=== PATIENT | female | born 1960 | race Caucasian/White ===

== ENCOUNTER → 2020-04-09 | Outpatient (CLI) | payer OTHER | END | disposition home or self-care (01) | LOC: RAD 17:02 | PROVIDERS: ATTEND Family Medicine | DX: K57.30 Diverticulosis of large intestine without perforation or abscess without bleeding (principal); K57.32 Diverticulitis of large intestine without perforation or abscess without bleeding; Q89.09 Congenital malformations of spleen | CPT/HCPCS: 74176 ==

== ENCOUNTER 2020-04-11 11:24 | Inpatient (IN) | payer OTHER ==
[~2020-04-11] VITALS: Ht 172.7 cm; Wt 67.0 kg
--- NOTE | 2020-04-11 11:39 | NUR ---
PATIENT WALKED BACK FROM TRIAGE WITH CHIEF C/O DIFFUSE ABD PAIN. PATIENT HAD CT SCAN WEDNESDAY WHICH SHOWED DIVERTICULITIS. PATIENT WAS SEEN AT URGENT CARE TODAY AND SENT STRAIGHT TO ER. PATIENT STATES NO BM IN 6 DAYS, DENIES VOMITING, PATIENT REPORTS CHILLS AND NAUSEA. PATIENT DENIES PAIN WITH URINATION. NADN, PATIENTS SPOUSE AT BEDSIDE, VSS, CALL LIGHT WITHIN REACH.
--- NOTE | 2020-04-11 11:57 | NUR ---
ER PROVIDER AT BEDSIDE FOR EVALUATION.
[2020-04-11] MEDS ORDERED: MORPHINE SULFATE 4 MG/ML, 1ML IVPush PRN (12:00)
[2020-04-11] MEDS ORDERED: ONDANSETRON 2MG/ML, 2ML IVPush ONE (12:00)
[2020-04-11] MEDS ORDERED: SODIUM CHLORIDE FLUSH 10ML SYR IVF ONE (12:00)
[2020-04-11] MEDS ORDERED: MORPHINE SULFATE 4 MG/ML, 1ML ONE (12:08)
[2020-04-11] MEDS ORDERED: ONDANSETRON 2MG/ML, 2ML ONE (12:08)
--- NOTE | 2020-04-11 12:30 | NUR ---
PATIENT AMBULATED TO BATHROOM WITH STEADY GAIT, URINE SAMPLE COLLECTED AND SENT TO LAB. 20 GAUGE IV STARTED RIGHT AC, PATIENT MEDICATED PER eMAR, CALL LIGHT WITHIN REACH.
[2020-04-11 12:45] LABS: BASOPHILS % (AUTO) 0 % (0-1); EOSINOPHILS % (AUTO) 4 % (1-7); LYMPHOCYTES % (AUTO) 7 % (22-44); MEAN CORPUSCULAR HEMOGLOBIN 32.7 pg (27.0-34.8); MEAN CORPUSCULAR HGB CONC 34.1 g/dL (32.4-35.8); MEAN PLATELET VOLUME 7.7 fL (7.4-10.4); MONOCYTES % (AUTO) 5 % (2-9); NEUTROPHILS % (AUTO) 84 % (42-75); PLATELET COUNT 343 x10^3/uL (130-400); RED BLOOD COUNT 4.15 x10^6/uL (3.82-5.3); RED CELL DISTRIBUTION WIDTH 13.6 % (9.6-15.2)
[2020-04-11 12:46] LABS: MD NO
[2020-04-11 12:54] LABS: ALANINE AMINOTRANSFERASE 47 U/L (12-78); ALBUMIN 3.1 g/dL (3.4-5.0); ANION GAP 7 mmol/L (5-15); CALCIUM 8.7 mg/dL (8.5-10.1); CHLORIDE 106 mmol/L (98-107); CREATININE 1.09 mg/dL (0.55-1.02)
[2020-04-11 12:54] LABS: MICROSCOPIC NOT IND
[2020-04-11 12:57] LABS: ALKALINE PHOSPHATASE 104 U/L (45-117); BILIRUBIN,TOTAL 0.3 mg/dL (0.2-1.0); TOTAL PROTEIN 7.6 g/dL (6.4-8.2)
--- NOTE | 2020-04-11 13:07 | NUR ---
PATIENT TO IMAGING.
[2020-04-11] MEDS ORDERED: OMNIPAQUE 350 MG/ML, 100ML BOTTLE ONE (13:26)
[2020-04-11] MEDS ORDERED: SODIUM CHLORIDE FLUSH 10ML SYR IVF PRN (14:00)
[2020-04-11] MEDS ORDERED: CEFOTETAN PMX 1GM/50ML 50 ML IVPB ONE (14:00)
[2020-04-11] MEDS ORDERED: METRONIDAZOLE PMX 500MG/100ML 100 ML IV ONE (14:00)
--- NOTE | 2020-04-11 14:00 | NUR ---
PATIENT SITTING IN XIMENA, TC, NITHYAS, CALL LIGHT WITHIN REACH, NO FURTHER NEEDS AT THIS TIME.
--- NOTE | 2020-04-11 14:28 | NUR ---
CAMPAIGN CONSULTANT AT BEDSIDE TO DRAW BLOOD CULTURES.
[2020-04-11] MEDS ORDERED: TRAZODONE 50MG TABLET PO PRN (14:30)
[2020-04-11] MEDS ORDERED: ENOXAPARIN 40 MG/0.4 ML ONE (14:30)
[2020-04-11] MEDS ORDERED: morphine SULFATE 10 MG/ML, 1ML IVPush PRN (14:30)
[2020-04-11] MEDS ORDERED: METRONIDAZOLE PMX 500MG/100ML 100 ML ONE (14:31)
[2020-04-11] MEDS: ENOXAPARIN 40 MG/0.4 ML SQ SCH (14:33)
--- NOTE | 2020-04-11 14:53 | NUR ---
ATTEMPTED TO CALL REPORT.
--- NOTE | 2020-04-11 14:59 | NUR ---
REPORT GIVEN TO EDDIE RAYA ON MED/SURG.
--- NOTE | 2020-04-11 15:46 | NUR ---
PATIENT RESTING IN TC BUENO, DELMI, CALL LIGHT WITHIN REACH.
--- NOTE | 2020-04-11 16:16 | NUR ---
PATIENT TRANSFERRED IN STABLE CONDITION TO [address] [place] [address] VIA [facility] WITH 4 CADILLAC RN AND FOREST OFFICER.
[2020-04-11 16:28] VITALS: BP 91/61
[2020-04-11] MEDS: KETOROLAC 30 MG/1 ML IV PRN (17:58)
[2020-04-11 21:34] VITALS: BP 100/69
[2020-04-11] MEDS: METRONIDAZOLE PMX 500MG/100ML 100 ML IV SCH (23:43)
[2020-04-12 02:17] VITALS: BP 104/66
[2020-04-12] MEDS: KETOROLAC 30 MG/1 ML IV PRN ×3 (02:31→17:43)
[2020-04-12] MEDS: MELATONIN 5 MG TABLET PO PRN ×2 (02:31→18:27)
[2020-04-12] MEDS: ACETAMINOPHEN 325 MG TABLET PO PRN (02:32)
[2020-04-12] MEDS: CEFOTETAN PMX 1GM/50ML 50 ML IV SCH ×2 (03:47→16:06)
[2020-04-12 05:36] LABS: BASOPHILS % (AUTO) 0 % (0-1); EOSINOPHILS % (AUTO) 8 % (1-7); LYMPHOCYTES % (AUTO) 10 % (22-44); MEAN CORPUSCULAR HEMOGLOBIN 32.8 pg (27.0-34.8); MEAN CORPUSCULAR HGB CONC 34.4 g/dL (32.4-35.8); MEAN PLATELET VOLUME 7.7 fL (7.4-10.4); MONOCYTES % (AUTO) 11 % (2-9); NEUTROPHILS % (AUTO) 72 % (42-75); PLATELET COUNT 303 x10^3/uL (130-400); RED BLOOD COUNT 3.69 x10^6/uL (3.82-5.3); RED CELL DISTRIBUTION WIDTH 13.6 % (9.6-15.2)
[2020-04-12 05:41] LABS: MD NO
[2020-04-12 05:49] LABS: CHLORIDE 108 mmol/L (98-107)
[2020-04-12 05:59] LABS: ALANINE AMINOTRANSFERASE 32 U/L (12-78); ALBUMIN 2.5 g/dL (3.4-5.0); ALKALINE PHOSPHATASE 81 U/L (45-117); ANION GAP 4 mmol/L (5-15); BILIRUBIN,TOTAL 0.2 mg/dL (0.2-1.0); CALCIUM 8.5 mg/dL (8.5-10.1); CREATININE 1.15 mg/dL (0.55-1.02); TOTAL PROTEIN 6.3 g/dL (6.4-8.2)
[2020-04-12 07:10] VITALS: BP 98/65
[2020-04-12] MEDS: METRONIDAZOLE PMX 500MG/100ML 100 ML IV SCH ×3 (07:43→23:44)
[2020-04-12 14:10] VITALS: BP 105/69
[2020-04-12] MEDS: ENOXAPARIN 40 MG/0.4 ML SQ SCH (14:18)
[2020-04-12] MEDS ORDERED: SULF1TAB24 PO (16:07)
[2020-04-12] MEDS ORDERED: METR-90 PO (16:07)
[2020-04-12 19:25] VITALS: BP 96/58
[2020-04-13 00:18] VITALS: BP 94/56
[2020-04-13] MEDS: KETOROLAC 30 MG/1 ML IV PRN (01:02)
[2020-04-13] MEDS: ONDANSETRON ODT 4 MG PO PRN (01:55)
[2020-04-13] MEDS: CEFOTETAN PMX 1GM/50ML 50 ML IV SCH (04:28)
[2020-04-13 07:20] VITALS: BP 112/59
[2020-04-13] MEDS: METRONIDAZOLE PMX 500MG/100ML 100 ML IV SCH ×2 (07:49→16:31)
[2020-04-13] MEDS ORDERED: SODIUM CHLORIDE 0.9% 1,000 ML IV SCH (10:00)
[2020-04-13 13:11] LABS: BASOPHILS % (AUTO) 0 % (0-1); EOSINOPHILS % (AUTO) 6 % (1-7); LYMPHOCYTES % (AUTO) 19 % (22-44); MEAN CORPUSCULAR HEMOGLOBIN 32.8 pg (27.0-34.8); MEAN CORPUSCULAR HGB CONC 34.1 g/dL (32.4-35.8); MEAN PLATELET VOLUME 7.6 fL (7.4-10.4); MONOCYTES % (AUTO) 10 % (2-9); NEUTROPHILS % (AUTO) 65 % (42-75); PLATELET COUNT 364 x10^3/uL (130-400); RED BLOOD COUNT 3.88 x10^6/uL (3.82-5.3); RED CELL DISTRIBUTION WIDTH 13.4 % (9.6-15.2)
[2020-04-13 13:13] LABS: MD NO
[2020-04-13 13:15] VITALS: BP 127/73
[2020-04-13 13:20] LABS: ANION GAP 5 mmol/L (5-15); CALCIUM 8.7 mg/dL (8.5-10.1); CHLORIDE 112 mmol/L (98-107)
[2020-04-13] MEDS: ENOXAPARIN 40 MG/0.4 ML SQ SCH (14:30)
[2020-04-13 20:22] VITALS: BP 108/60
[2020-04-13] MEDS: CIPROFLOXACIN 500 MG TABLET PO SCH (20:34)
[2020-04-14 00:31] VITALS: BP 123/80
[2020-04-14] MEDS: METRONIDAZOLE PMX 500MG/100ML 100 ML IV SCH ×3 (00:37→17:30)
[2020-04-14 06:26] LABS: BASOPHILS % (AUTO) 0 % (0-1); EOSINOPHILS % (AUTO) 3 % (1-7); LYMPHOCYTES % (AUTO) 21 % (22-44); MEAN CORPUSCULAR HEMOGLOBIN 32.8 pg (27.0-34.8); MEAN CORPUSCULAR HGB CONC 33.9 g/dL (32.4-35.8); MEAN PLATELET VOLUME 7.6 fL (7.4-10.4); MONOCYTES % (AUTO) 10 % (2-9); NEUTROPHILS % (AUTO) 66 % (42-75); PLATELET COUNT 357 x10^3/uL (130-400); RED BLOOD COUNT 3.57 x10^6/uL (3.82-5.3); RED CELL DISTRIBUTION WIDTH 13.6 % (9.6-15.2)
[2020-04-14 06:28] LABS: MD NO
[2020-04-14 06:31] LABS: CHLORIDE 113 mmol/L (98-107)
[2020-04-14 06:42] LABS: ANION GAP 7 mmol/L (5-15); CALCIUM 8.3 mg/dL (8.5-10.1); CREATININE 0.73 mg/dL (0.55-1.02)
[2020-04-14 07:35] VITALS: BP 131/83
[2020-04-14] MEDS: CIPROFLOXACIN 500 MG TABLET PO SCH ×2 (08:14→19:53)
[2020-04-14] MEDS: SODIUM CHLORIDE 0.9% 1,000 ML IV SCH (08:15)
[2020-04-14] MEDS: POLYETHYLENE GLYCOL 17 GM PACKET PO SCH (11:48)
[2020-04-14 13:55] VITALS: BP 116/66
[2020-04-14] MEDS: ENOXAPARIN 40 MG/0.4 ML SQ SCH (14:36)
[2020-04-14] MEDS: ACETAMINOPHEN 325 MG TABLET PO PRN (18:27)
[2020-04-14 19:51] VITALS: BP 143/78
[2020-04-14] MEDS: ONDANSETRON ODT 4 MG PO PRN (23:36)
[2020-04-15] MEDS: METRONIDAZOLE PMX 500MG/100ML 100 ML IV SCH ×2 (02:06→09:56)
[2020-04-15] MEDS: SODIUM CHLORIDE 0.9% 1,000 ML IV SCH ×3 (02:06→23:41)
[2020-04-15 02:22] VITALS: BP 126/71
[2020-04-15 06:02] LABS: HCT (SEDRATE) 33.8 % (34.6-47.8)
[2020-04-15 06:11] LABS: BASOPHILS % (AUTO) 0 % (0-1); EOSINOPHILS % (AUTO) 2 % (1-7); LYMPHOCYTES % (AUTO) 21 % (22-44); MEAN CORPUSCULAR HEMOGLOBIN 32.8 pg (27.0-34.8); MEAN CORPUSCULAR HGB CONC 34.6 g/dL (32.4-35.8); MEAN PLATELET VOLUME 7.7 fL (7.4-10.4); MONOCYTES % (AUTO) 8 % (2-9); NEUTROPHILS % (AUTO) 69 % (42-75); PLATELET COUNT 360 x10^3/uL (130-400); RED BLOOD COUNT 3.58 x10^6/uL (3.82-5.3); RED CELL DISTRIBUTION WIDTH 13.7 % (9.6-15.2)
[2020-04-15 06:19] LABS: ALANINE AMINOTRANSFERASE 147 U/L (12-78); ALBUMIN 2.4 g/dL (3.4-5.0); ANION GAP 5 mmol/L (5-15); CALCIUM 8.1 mg/dL (8.5-10.1); CHLORIDE 112 mmol/L (98-107)
[2020-04-15 06:22] LABS: ALKALINE PHOSPHATASE 68 U/L (45-117); BILIRUBIN,TOTAL 0.3 mg/dL (0.2-1.0); CREATININE 0.69 mg/dL (0.55-1.02); TOTAL PROTEIN 5.7 g/dL (6.4-8.2)
[2020-04-15 06:24] LABS: MD NO
[2020-04-15 06:25] LABS: C-REACTIVE PROTEIN, QUANT 0.07 mg/dL (0.02-0.49)
[2020-04-15 07:55] VITALS: BP 134/84
[2020-04-15] MEDS: CIPROFLOXACIN 500 MG TABLET PO SCH ×2 (09:56→20:41)
[2020-04-15] MEDS: POLYETHYLENE GLYCOL 17 GM PACKET PO SCH (09:56)
[2020-04-15] MEDS: ONDANSETRON ODT 4 MG PO PRN (11:19)
[2020-04-15 13:56] VITALS: BP 131/80
[2020-04-15] MEDS: ACETAMINOPHEN 325 MG TABLET PO PRN (13:57)
[2020-04-15] MEDS: ENOXAPARIN 40 MG/0.4 ML SQ SCH (13:57)
[2020-04-15 14:07] LABS: ALANINE AMINOTRANSFERASE 183 U/L (12-78); ALBUMIN 2.7 g/dL (3.4-5.0); ANION GAP 7 mmol/L (5-15); CALCIUM 8.3 mg/dL (8.5-10.1); CHLORIDE 112 mmol/L (98-107); CREATININE 0.69 mg/dL (0.55-1.02)
[2020-04-15 14:09] LABS: ALKALINE PHOSPHATASE 71 U/L (45-117); BILIRUBIN,TOTAL 0.3 mg/dL (0.2-1.0); TOTAL PROTEIN 6.3 g/dL (6.4-8.2)
[2020-04-15] MEDS: metroNIDAZOLE 500 MG TABLET PO SCH ×2 (15:52→20:42)
[2020-04-15 19:41] VITALS: BP 127/72
[2020-04-16 01:36] VITALS: BP 133/84
[2020-04-16 06:19] LABS: ALBUMIN 2.6 g/dL (3.4-5.0); ANION GAP 7 mmol/L (5-15); CALCIUM 8.5 mg/dL (8.5-10.1); CHLORIDE 112 mmol/L (98-107)
[2020-04-16 06:24] LABS: ALANINE AMINOTRANSFERASE 185 U/L (12-78); ALKALINE PHOSPHATASE 69 U/L (45-117); BASOPHILS % (AUTO) 0 % (0-1); BILIRUBIN,TOTAL 0.4 mg/dL (0.2-1.0); CREATININE 0.67 mg/dL (0.55-1.02); EOSINOPHILS % (AUTO) 0 % (1-7); LYMPHOCYTES % (AUTO) 15 % (22-44); MEAN CORPUSCULAR HEMOGLOBIN 32.6 pg (27.0-34.8); MEAN CORPUSCULAR HGB CONC 34.1 g/dL (32.4-35.8); MEAN PLATELET VOLUME 7.6 fL (7.4-10.4); MONOCYTES % (AUTO) 6 % (2-9); NEUTROPHILS % (AUTO) 79 % (42-75); PLATELET COUNT 376 x10^3/uL (130-400); RED BLOOD COUNT 3.63 x10^6/uL (3.82-5.3); RED CELL DISTRIBUTION WIDTH 13.5 % (9.6-15.2); TOTAL PROTEIN 6.1 g/dL (6.4-8.2)
[2020-04-16 06:52] LABS: MD NO
[2020-04-16 07:53] VITALS: BP 143/82
[2020-04-16] MEDS: metroNIDAZOLE 500 MG TABLET PO SCH (08:48)
[2020-04-16] MEDS: CIPROFLOXACIN 500 MG TABLET PO SCH (08:48)
[2020-04-16] MEDS: POLYETHYLENE GLYCOL 17 GM PACKET PO SCH (08:48)
[2020-04-16] MEDS: SODIUM CHLORIDE 0.9% 1,000 ML IV SCH (09:56)
[2020-04-16] MEDS ORDERED: CIPR500T87 PO (10:01)
[2020-04-16] MEDS ORDERED: ONDA4TAB13 PO (10:01)
[2020-04-16] MEDS ORDERED: METR-90 PO (10:01)
== END 2020-04-16 11:42 | disposition home or self-care (01) | DRG 872 ==
LOC: SUATTDRO 13:59 → ED 13:59 → EDIP 14:07 → 4NE 16:24 → DCLOUNGE 04-16 11:24
PROVIDERS: ADMIT Internal Medicine; ATTEND Internal Medicine
DX: A41.9 Sepsis, unspecified organism (principal); K57.20 Diverticulitis of large intestine with perforation and abscess without bleeding; N17.9 Acute kidney failure, unspecified; R50.2 Drug induced fever; K59.00 Constipation, unspecified; Z79.899 Other long term (current) drug therapy
CPT/HCPCS: 36415; 74177; 76705; 80048; 80053; 80074; 81003; 82803; 83605; 85025; 85651; 86140; 87040; 99285; G0378; J1650; J1885; J2405; Q0162; Q9967; J2270; J7030

== ENCOUNTER 2020-04-25 14:30 | Emergency (ER) | payer OTHER ==
[~2020-04-25] VITALS: Ht 172.7 cm; Wt 66.0 kg
--- NOTE | 2020-04-25 14:59 | NUR ---
PT IN XIMENA, NO DISTRESS, VSS, PT WAS AT DR APPOINTMENT AND WAS TOLD SHE HAD A DVT,
[2020-04-25 15:35] VITALS: BP 125/65
== END 2020-04-25 15:42 | disposition home or self-care (01) ==
LOC: ED 15:20
DX: I82.432 Acute embolism and thrombosis of left popliteal vein (principal); M79.604 Pain in right leg
CPT/HCPCS: 99283

== ENCOUNTER → 2020-04-25 | Outpatient (CLI) | payer OTHER ==
[~2020-04-25] MED LIST: CIPR500T87 PO; METR-90 PO; ONDA4TAB13 PO; SULF1TAB24 PO
== END | disposition home or self-care (01) ==
LOC: CFH 13:07
PROVIDERS: ATTEND Nurse Practitioner Family
DX: I82.431 Acute embolism and thrombosis of right popliteal vein (principal)

== ENCOUNTER → 2020-07-12 | Outpatient (CLI) | payer OTHER ==
[~2020-07-12] MED LIST changes: +APIX5TAB PO
== END | disposition home or self-care (01) ==
LOC: STAR 07:47
PROVIDERS: ATTEND Colon & Rectal Surgery
DX: Z20.822 Contact with and (suspected) exposure to COVID-19 (principal)
CPT/HCPCS: U0003

== ENCOUNTER 2020-08-27 12:09 | Emergency (ER) | payer OTHER ==
[~2020-08-27] VITALS: Ht 172.7 cm; Wt 66.3 kg
[~2020-08-27 12:09] MED LIST changes: +SULF-23 PO; -SULF1TAB24 PO
[2020-08-27 12:14] VITALS: BP 140/56
== END 2020-08-27 14:30 | disposition home or self-care (01) ==
LOC: ED 13:50
DX: I82.531 Chronic embolism and thrombosis of right popliteal vein (principal)
CPT/HCPCS: 93970; 99284